=== PATIENT | female | born 1940 | race Two or more races ===

== ENCOUNTER 2019-07-13 17:27 | Outpatient (CLI) | payer OTHER ==
[~2019-07-13 17:27] MED LIST: CARDURA XL4 MG/BOTTL; CIPRO500 MG PO; DILTIAZEM ER120 M1 PO; FOLIC ACID0.4 MG; GLIPIZIDE10 MG PO; HYZAAR 100-251 UDTAB PO; ISOSORBIDE DINI30 MG PO; LANTUS100 U/ML SQ; METFORMIN HCL500 MG; METOPROLOL SUCC25 MG; METOPROLOL TART50 MG; PANTOPRAZOLE SO40 MG; PLAVIX75 MG; SINGULAIR4 MG PO; TESSALON PERLE100 MG; [UNRECOGNIZED DRUG - OTHER]
== END 2019-07-13 18:48 | disposition home or self-care (01) ==
LOC: LAB 17:27
DX: K50.00 Crohn's disease of small intestine without complications (principal); K57.90 Diverticulosis of intestine, part unspecified, without perforation or abscess without bleeding; I10 Essential (primary) hypertension; N39.0 Urinary tract infection, site not specified

== ENCOUNTER 2019-07-14 09:18 | Outpatient (CLI) | payer OTHER | END 2019-07-14 09:21 | disposition home or self-care (01) | LOC: SONOGRAMA 09:18 → MAMO-SONO 09:45 | DX: K56.699 Other intestinal obstruction unspecified as to partial versus complete obstruction (principal) ==